=== PATIENT | male | born 1965 | race Caucasian/White ===

== ENCOUNTER 2021-12-29 13:58 | Emergency (ER) | payer OTHER ==
[~2021-12-29] VITALS: Ht 182.9 cm; Wt 118.2 kg
[2021-12-29 14:44] VITALS: TEMP 98.8
[2021-12-29 16:41] VITALS: BP 150/96; PULSE 90
== END 2021-12-29 16:41 | disposition home or self-care (01) ==
LOC: COL.ER 13:58
DX: M16.11 Unilateral primary osteoarthritis, right hip (principal); F17.210 Nicotine dependence, cigarettes, uncomplicated; Z28.310 Unvaccinated for COVID-19; X58.XXXA Exposure to other specified factors, initial encounter

== ENCOUNTER 2022-01-15 08:06 | Emergency (ER) | payer OTHER ==
[~2022-01-15] VITALS: Ht 182.9 cm; Wt 120.5 kg
[2022-01-15 08:10] VITALS: TEMP 97
[2022-01-15] MEDS ORDERED: NEURONTIN100 MG/CAP PO (08:14)
[2022-01-15] MEDS ORDERED: ROBAXIN 75750 MG/TAB PO (08:15)
[2022-01-15] MEDS ORDERED: NORCO 325 MG-51 TAB PO (09:18)
[2022-01-15] MEDS ORDERED: IBU800 M1 PO (09:18)
[2022-01-15 09:41] VITALS: BP 168/89; PULSE 94
== END 2022-01-15 09:41 | disposition home or self-care (01) ==
LOC: COL.ER 08:06
DX: M25.551 Pain in right hip (principal); F17.210 Nicotine dependence, cigarettes, uncomplicated; Z28.310 Unvaccinated for COVID-19; X50.1XXA Overexertion from prolonged static or awkward postures, initial encounter
CPT/HCPCS: J1885

== ENCOUNTER 2022-08-04 14:24 | Inpatient (IN) | payer OTHER ==
[2022-08-04] VITALS (340 sets, daily range): BP systolic 164; BP diastolic 90; PULSE 102; TEMP 98.4; O2SAT 82–99
[~2022-08-04] VITALS: Ht 182.9 cm; Wt 112.2 kg
[~2022-08-04 14:24] MED LIST: IBU800 M1 PO; NEURONTIN100 MG/CAP PO; NORCO 325 MG-51 TAB PO; ROBAXIN 75750 MG/TAB PO
[2022-08-04 15:01] LABS: HEMATOCRIT 39.9 % (42.0-52.0); HEMOGLOBIN 13.3 g/dl (13.5-18.0); MEAN CELL VOLUME 95 fl (80.0-100.0); MEAN CORPUSCULAR HEMOGLOBIN 32 pg (27-31); MEAN CORPUSCULAR HGB CONC 33 g/dl (33.0-37.0); MEAN PLATELET VOLUME 10.2 fl (7.4-10.4); PLATELET COUNT 343 K/mm3 (130-400); RED BLOOD COUNT 4.22 M/mm3 (4.20-5.60); REDCELL DISTRIBUTION WIDTH-CV 14.4 % (11.5-14.5)
[2022-08-04 15:17] LABS: BAND 22 % (0-10); LYMPHOCYTE 6 % (20.0-51.0); NEUTROPHILS 64 % (42.0-75.2); PLATELET ESTIMATE NORMAL (NORMAL)
[2022-08-04 15:19] LABS: ARTERIAL BLD GAS O2 SATURATION 95.5 % (92-100); ARTERIAL BLD GAS TCO2 CT 31.8; ARTERIAL BLOOD GAS HCO3 30.2 meq/L (22-26); ARTERIAL BLOOD GAS PCO2 51.7 mmHg (35-45); ARTERIAL BLOOD GAS PO2 73.8 mmHg (80-100); ARTERIAL BLOOD GAS pH 7.38 (7.35-7.45)
[2022-08-04 15:23] LABS: ALBUMIN 2.6 gm/dL (3.5-5.0); BILIRUBIN,TOTAL 0.5 mg/dL (0.2-1.2); CALCIUM 9.6 mg/dL (8.4-10.2); CREATININE, serum 0.95 mg/dL (0.72-1.25); POTASSIUM 3.9 mmol/L (3.5-4.5); TOTAL PROTEIN 7.5 gm/dL (6.2-8.1)
[2022-08-04 16:32] LABS: COLLECTION METHOD CLEAN CATCH
[2022-08-04 16:41] LABS: MUCOUS Present (NOT PRESENT); SQUAMOUS EPITHELIAL 0-2 /hpf (0-10); URINE APPEARANCE Clear (CLEAR/HAZY); URINE BACTERIA None Seen /hpf (NONE SEEN); URINE COLOR Yellow (YELLOW); URINE PROTEIN(semi-quant) 3+ (NEGATIVE); URINE RBC 0-2 /hpf (0-2)
[2022-08-04 16:42] LABS: URINE BLOOD 2+ (NEGATIVE); URINE GLUCOSE Negative (NEGATIVE); URINE KETONE Negative (NEGATIVE); URINE NITRATE Negative (NEGATIVE)
[2022-08-04] MEDS ORDERED: PROAIR HFA0.09 MG/AC IH (17:28)
[2022-08-04] MEDS ORDERED: RT ADVAIR 228 DISKUS IH (17:29)
[2022-08-04] MEDS ORDERED: WIXELA 250-501 EACH IH (17:29)
--- NOTE | 2022-08-04 21:00 | NUR ---
Patient assessment completed. Patient is alert and oriented x4. Patient request for a nicotine patch. HUNTER Agarwal gave this RN verbal orders for a nicotine patch. Patient is having difficulties understanding cigarettes cannot be used within the hospital. This RN educated patient on hospital policy and that supplemental oxygen is highly flammable. Patient is currently tachycardic and hypertensive. Lasix given per EMar. Patient voids using the urinal. Patient is yelling within his room for cigarettes. RN reducated patient on hospital policy. Patient verbalizes an apology and that he is frustrated at the policy. RN gave patient a snack and deescalated the situation.
[2022-08-04 22:33] LABS: TRICYCLIC ANTIDEPRESS URINE NEGATIVE
[2022-08-05] VITALS (1138 sets, daily range): BP systolic 94–124; BP diastolic 61–76; PULSE 75–100; TEMP 97.3–98.5; O2SAT 73–100
--- NOTE | 2022-08-05 03:15 | NUR ---
RN assessed patient due to O2 saturation desating to the mid 80s. Patient is alert but unable to follow commands. Patient would respond to voice and painful stimulaton. Vital signs assessed- systolic blood pressure was in the 180s. This RN rechecked pressure and systolic resulted in the 190s. HUNTER Agarwal contacted to update her on the situation. New orders for a stat head CTA. Respiratory therapy and custodian supervisor notified and accompanied RN to radiology. 0327- Patient left the ICU to radiology. 0340- Patient returned to the unit, patient appears obtunded. HUNTER Agarwal notified about patients status. New orders for an ABG. ABG results - pH-7.16, pCO2-99.5, pO2-66, and HCO3-39.6. After discussing with HUNTER Agarwal due to patient being extremely obtunded and minimal response, intubation would be the best option. Dr. Carolina from ED consulted to perfom intubation. 0407- custodian supervisor pushed Etomidate followed by succinylcholine. 0408- Intubation was successful, patient tolerated procedure and placed on fentanyl and propofol. After intubation patient began to vomit. Respiratory therapist and RN began suctioning patient. Patient's OG tube connected to LIS. Patient became hypotensive after intubation. 1L LR bolus given to improve pressures. Patient now resting comfortable in bed.
[2022-08-05 03:51] LABS: ARTERIAL BLD GAS TCO2 CT 37.7; ARTERIAL BLOOD GAS BASE EXCESS 2.7 (-2-2); ARTERIAL BLOOD GAS HCO3 34.7 meq/L (22-26)
[2022-08-05 03:53] LABS: ARTERIAL BLOOD GAS PCO2 99.5 mmHg (35-45); ARTERIAL BLOOD GAS pH 7.16 (7.35-7.45)
[2022-08-05 05:45] LABS: ARTERIAL BLD GAS O2 SATURATION 99.9 % (92-100); ARTERIAL BLD GAS TCO2 CT 39.1; ARTERIAL BLOOD GAS BASE EXCESS 8.4 (-2-2); ARTERIAL BLOOD GAS HCO3 36.9 meq/L (22-26); ARTERIAL BLOOD GAS pH 7.33 (7.35-7.45)
[2022-08-05 05:46] LABS: ARTERIAL BLOOD GAS PCO2 72.3 mmHg (35-45); ARTERIAL BLOOD GAS PO2 442.8 mmHg (80-100)
--- NOTE | 2022-08-05 08:11 | NUR ---
Patient intubated less than an hour ago. No vacation at this time.
[2022-08-05 08:32] LABS: HEMOGLOBIN 11.6 g/dl (13.5-18.0); MEAN CELL VOLUME 96 fl (80.0-100.0); MEAN CORPUSCULAR HEMOGLOBIN 32 pg (27-31); MEAN CORPUSCULAR HGB CONC 33 g/dl (33.0-37.0); MEAN PLATELET VOLUME 10.3 fl (7.4-10.4); PLATELET COUNT 295 K/mm3 (130-400); RED BLOOD COUNT 3.66 M/mm3 (4.20-5.60); REDCELL DISTRIBUTION WIDTH-CV 14.7 % (11.5-14.5)
[2022-08-05 08:35] LABS: HEMATOCRIT 35.2 % (42.0-52.0)
[2022-08-05 08:43] LABS: CALCIUM 8.9 mg/dL (8.4-10.2); CREATININE, serum 0.85 mg/dL (0.72-1.25); MAGNESIUM 2.3 mg/dL (1.6-2.6); POTASSIUM 4.8 mmol/L (3.5-4.5)
--- NOTE | 2022-08-05 08:49 | NUR ---
RECEIVED REPORT FROM NIGHTSHIFT RNCORNELIA. VENTILATOR SETTINGS, ET/ OG TUBING PLACEMENT, AND SEDATION DRIPS VERIFIED BEDSIDE.
[2022-08-05 09:03] LABS: BAND 4 % (0-10); LYMPHOCYTE 8 % (20.0-51.0); NEUTROPHILS 86 % (42.0-75.2)
[2022-08-05 09:05] LABS: HYPOCHROMIA 1+; PLATELET ESTIMATE NORMAL (NORMAL)
--- NOTE | 2022-08-05 09:46 | NUR ---
OLD NICOTINE PATCH REMOVED FROM PATIENT'S RIGHT SHOULDER. NEW NICOTINE PATCH PLACED ON PATIENT'S LEFT SHOULDER.
--- NOTE | 2022-08-05 10:18 | NUR ---
Patient currently intubated and sedated. Patients emergency contact Bekah Jackson sent to OSH on 08/02. Phone call made to the patients PCP office, and spoke with DENISE Dean. No DPOA-HC on file with PCP office.
--- NOTE | 2022-08-05 10:34 | NUR ---
HEAD TO TOE ASSESSMENT COMPLETED. IV SITES, FLANAGAN, VENTILATOR, AND IV DRIPS VERIFIED. ORDERS, MEDICATIONS, AND LAB RESULTS REVIEWED AND ACKNOWLEDGED. CALL LIGHT WITHIN REACH OF THE PATIENT. WILL CONTINUE TO MONITOR.
--- NOTE | 2022-08-05 15:32 | NUR ---
SPOKE WITH RT CHARLOTTE ABOUT PATIENT SPO2 LEVEL BEING 91-92%. RT STATES THIS SPO2 LEVEL IS ADEQUATE AT THIS TIME. ABG WILL BE REPEATED IN THE MORNING. WILL CONTINUE TO MONITOR.
--- NOTE | 2022-08-05 17:09 | NUR ---
UNABLE TO DO SEDATION VACATION AT THIS TIME D/T PATIENT'S RESTLESSNESS AND AGITATION.
--- NOTE | 2022-08-05 17:59 | NUR ---
HEAD TO TOE ASSESSMENT COMPLETED. ORDERS, LABS, AND MEDICATIONS REVIEWED AND ACKNOWLEDGED. IV SITES, IV DRIPS, FLANAGAN, ET/OG TUBE PLACEMENT, AND VENTILATOR SETTINGS ALL VERIFIED. PATIENT APPEARS TO BE RESTING COMFORTABLY AND IS NOT FIGHTING THE VENTILATOR AT THIS TIME. CALL LIGHT WITHIN REACH. WILL CONTINUE TO MONITOR.
--- NOTE | 2022-08-05 20:30 | NUR ---
Patient assessment completed. Patient is awake at times throughout assessment. Patient follows simple commands - squeezing RN's hand, wiggling toes. Patient is attempting to talk with the ETT in place. This RN gave patient a pen and paper and answered patients questions. Patient is tolerating ventilator after an increase in sedation. VSS. Patient repositioned in bed and is now resting comfortably.
[2022-08-05 20:56] LABS: ARTERIAL BLD GAS O2 SATURATION 92.8 % (92-100); ARTERIAL BLD GAS TCO2 CT 33.2; ARTERIAL BLOOD GAS BASE EXCESS 6.6 (-2-2); ARTERIAL BLOOD GAS HCO3 31.8 meq/L (22-26); ARTERIAL BLOOD GAS PCO2 47.5 mmHg (35-45); ARTERIAL BLOOD GAS PO2 61.7 mmHg (80-100); ARTERIAL BLOOD GAS pH 7.44 (7.35-7.45)
[2022-08-06] VITALS (1338 sets, daily range): BP systolic 94–126; BP diastolic 62–78; PULSE 56–81; TEMP 97.7–98.6; O2SAT 83–100
[2022-08-06 04:42] LABS: ARTERIAL BLD GAS O2 SATURATION 93.4 % (92-100); ARTERIAL BLOOD GAS BASE EXCESS 9.4 (-2-2); ARTERIAL BLOOD GAS HCO3 35.3 meq/L (22-26); ARTERIAL BLOOD GAS PCO2 54.3 mmHg (35-45); ARTERIAL BLOOD GAS PO2 64.8 mmHg (80-100); ARTERIAL BLOOD GAS pH 7.43 (7.35-7.45)
[2022-08-06 04:59] LABS: HEMOGLOBIN 10.9 g/dl (13.5-18.0); MEAN CELL VOLUME 100 fl (80.0-100.0); MEAN CORPUSCULAR HEMOGLOBIN 32 pg (27-31); MEAN CORPUSCULAR HGB CONC 32 g/dl (33.0-37.0); PLATELET COUNT 329 K/mm3 (130-400); REDCELL DISTRIBUTION WIDTH-CV 15.1 % (11.5-14.5)
[2022-08-06 05:03] LABS: HEMATOCRIT 33.9 % (42.0-52.0)
[2022-08-06 05:15] LABS: CALCIUM 8.7 mg/dL (8.4-10.2); CREATININE, serum 0.97 mg/dL (0.72-1.25); MAGNESIUM 2.7 mg/dL (1.6-2.6); POTASSIUM 4.2 mmol/L (3.5-4.5)
--- NOTE | 2022-08-06 05:38 | NUR ---
Sedation vacation not attempted at this time due to patient responding and following commands at this level of sedation. When sedation is titrated lower patient begins to fight the ventilator.
[2022-08-06 07:03] LABS: BAND 17 % (0-10); LYMPHOCYTE 11 % (20.0-51.0); METAMYELOCYTE 1 % (0-0); NEUTROPHILS 69 % (42.0-75.2); NUCLEATED RED BLOOD CELL 1 (0-6); PLATELET ESTIMATE NORMAL (NORMAL)
--- NOTE | 2022-08-06 07:45 | NUR ---
Received report from PRACHI Jacinto; patient still on ventilator with prop and fent running for sedation; patient also has OG tube and is on tube feeds. Patient has Murcia catheter placed and a peripheral INT in addition to the right upper arm PICC. Patient currently sedated and resting comfortably. Vital signs are within normal limits this morning.
--- NOTE | 2022-08-06 10:11 | NUR ---
Initial visit; Patient vented, was receptive to Soil Scientist offering prayer and God's blessings. Yasir appeared to be pleased Soil Scientist was with him. Soil Scientist will follow up.
--- NOTE | 2022-08-06 14:25 | NUR ---
Patient still intubated and sedated. Phone call made to Amena Jackson as this was listed as the patients "son" in his EMR. Upon talking with Amena, this is not a biological or legal child in any form of the patients. Her mother is Bekah, whom is the person that the patient lives with. Per Amena, prior to admission, the patient was fully independent with his ADL's and IAdl's. He has no home oxygen needs. PCP is Dr. Ridley and he obtains prescriptions through [email or web address]. Amena states that the patient and her mother are not legally , the patient has no children but she does believe the patients mother and brother are alive. She is unable to provide any contact information or names to them aside from possible states they might be living in.
--- NOTE | 2022-08-06 17:00 | NUR ---
Sedation vacation not done today as patient is able to respond appropriately and follow commands at the level of sedation he is on.
--- NOTE | 2022-08-06 20:30 | NUR ---
Patient assessment completed. Patient is awake on the ventilator and is able to follow commands. Patients vital signs are stable. Patient suctioned and RN was able to pull up lots of thin white secretions. This RN gave patient a bed bath and now patient is resting comfortably while watching TV.
[2022-08-07] VITALS (1128 sets, daily range): BP systolic 104–127; BP diastolic 65–75; PULSE 64–78; TEMP 98.5–99; O2SAT 77–100
[2022-08-07 04:08] LABS: ARTERIAL BLD GAS O2 SATURATION 95.4 % (92-100); ARTERIAL BLD GAS TCO2 CT 35.8; ARTERIAL BLOOD GAS BASE EXCESS 8.6 (-2-2); ARTERIAL BLOOD GAS HCO3 34.2 meq/L (22-26); ARTERIAL BLOOD GAS PCO2 51.7 mmHg (35-45); ARTERIAL BLOOD GAS PO2 78.7 mmHg (80-100); ARTERIAL BLOOD GAS pH 7.44 (7.35-7.45)
--- NOTE | 2022-08-07 05:05 | NUR ---
Patient's sedation titrated down as patient was tolerating sedation levels. Patient follows commands and answers simple questions.
[2022-08-07 05:07] LABS: HEMOGLOBIN 11.2 g/dl (13.5-18.0); MEAN CELL VOLUME 96 fl (80.0-100.0); MEAN CORPUSCULAR HEMOGLOBIN 33 pg (27-31); MEAN CORPUSCULAR HGB CONC 34 g/dl (33.0-37.0); MEAN PLATELET VOLUME 10.8 fl (7.4-10.4); PLATELET COUNT 336 K/mm3 (130-400); RED BLOOD COUNT 3.45 M/mm3 (4.20-5.60); REDCELL DISTRIBUTION WIDTH-CV 15.2 % (11.5-14.5)
[2022-08-07 05:47] LABS: CALCIUM 8.4 mg/dL (8.4-10.2); CREATININE, serum 0.87 mg/dL (0.72-1.25); MAGNESIUM 3.1 mg/dL (1.6-2.6); PHOSPHOROUS 3.4 mg/dL (2.3-4.7); POTASSIUM 4.6 mmol/L (3.5-4.5)
[2022-08-07 06:20] LABS: ANISOCYTOSIS 1+; BAND 2 % (0-10); LYMPHOCYTE 9 % (20.0-51.0); MYELOCYTE 4 % (0-0); NEUTROPHILS 82 % (42.0-75.2); PLATELET ESTIMATE NORMAL (NORMAL)
[2022-08-07 06:21] LABS: TEAR DROP CELLS 2+
--- NOTE | 2022-08-07 10:19 | NUR ---
BEDSIDE REPORT RECIEVED FROM PRACHI LOCKE. PT ON VENILATOR: 7.5 ETT MEASURING 23CM AT GUM, TV480, PEEP 8, FIO2 50%, RATE 20. OG IN PLACE MEASURING 63CM AT LIP, TUBE FEEDS INFUSING ORDERED. SEDATION INFUSING TO R UPPER ARM PICC, SEE TITRATION FLOWSHEET FOR RATES. DRESSING TO PICC CDI. FLANAGAN CATHTER IN PLACE TO DEPENDENT DRAINAGE. PT IS EASILY AROUSED AND IS ABLE TO FOLLOW COMMANDS, PT DENIES PAIN. Q2HR TURN SCHEDULE IMPLEMENTED TO PREVENT SKIN BREAKDOWN.
--- NOTE | 2022-08-07 17:29 | NUR ---
SEDATION VACATION NOT DONE AT THIS TIME. PT WAKES EASILY TO VOICE AND BECOMES AGITATED W/ CARES.
[2022-08-08] VITALS (1069 sets, daily range): BP systolic 107–129; BP diastolic 0–90; PULSE 59–75; TEMP 98–98.7; O2SAT 73–100
[2022-08-08 02:49] LABS: ARTERIAL BLD GAS O2 SATURATION 94.6 % (92-100); ARTERIAL BLD GAS TCO2 CT 35.1; ARTERIAL BLOOD GAS BASE EXCESS 7.3 (-2-2); ARTERIAL BLOOD GAS HCO3 33.4 meq/L (22-26); ARTERIAL BLOOD GAS PCO2 54.8 mmHg (35-45); ARTERIAL BLOOD GAS PO2 75.4 mmHg (80-100)
--- NOTE | 2022-08-08 03:35 | NUR ---
WEANING DOWN SEDATION LEVELS WITH GOAL OF EXTUABTION THIS AM PER DR. DWYER. PT CONTINUES TO HAVE LARGE AMOUNTS OF SECRETIONS WITH IN LINE SUCTIONING. MAINTAINING PULSE OXIMETRY ABOVE 93% ON CURRENT VENT SETTINGS, UP TO 97% AFTER SUCTIONING. AT THIS TIME, PT IS STARTING TO BE MORE AWAKE/ALERT, HOWEVER ALSO GETS FRUSTRATED AT LIMITED ABILITY TO COMMUNICATE. DOES CONTINUE TO TOLERATE VENILATOR AT THIS TIME. WILL CONTINUE TO MONITOR.
[2022-08-08 05:15] LABS: HEMOGLOBIN 10.6 g/dl (13.5-18.0); MEAN CELL VOLUME 99 fl (80.0-100.0); MEAN CORPUSCULAR HEMOGLOBIN 31 pg (27-31); MEAN CORPUSCULAR HGB CONC 32 g/dl (33.0-37.0); PLATELET COUNT 322 K/mm3 (130-400); REDCELL DISTRIBUTION WIDTH-CV 15.7 % (11.5-14.5)
[2022-08-08 05:27] LABS: HEMATOCRIT 33.5 % (42.0-52.0)
[2022-08-08 05:36] LABS: CALCIUM 8.2 mg/dL (8.4-10.2); CREATININE, serum 0.75 mg/dL (0.72-1.25); MAGNESIUM 3.2 mg/dL (1.6-2.6); POTASSIUM 4.9 mmol/L (3.5-4.5)
[2022-08-08 06:12] LABS: BAND 3 % (0-10); LYMPHOCYTE 14 % (20.0-51.0); METAMYELOCYTE 2 % (0-0); NEUTROPHILS 77 % (42.0-75.2); PLATELET ESTIMATE NORMAL (NORMAL)
--- NOTE | 2022-08-08 09:15 | NUR ---
BEDSIDE REPORT RECEIVED FROM PRACHI AVILES. PT ON VENTILATOR, 7.5 ETT MEASURING 23 AT GUM, TV 450, PEEP 7, FIO2 45%, RATE 20. OG TUBE IN PLACE MEASURING 63CM AT LIP, TUBE FEEDS ON HOLD AT THIS TIME PENDING BREATHING TRIAL AND POSSIBLE EXTUBATION LATER THIS MORNING. SEDATION HAS BEEN TITRATED DOWN BY REMOTE INPATIENT CODER, PROPOFOL IS AT 20 MCG/KG/MIN, FENTANYL AT 25 MCG/HR. PICC LINE TO R UPPER ARM WNL. FLANAGAN CATHETER IN PLACE TO DEPENDENT DRAINAGE. BED ALARM ON FOR PT SAFETY. PT IS ON TURN Q2HR SCHEDULE TO PREVENT SKIN BREAKDOWN.
[2022-08-08 10:34] LABS: CHOLESTEROL RISK RATIO 8.2
--- NOTE | 2022-08-08 11:09 | NUR ---
Patient failed extubation trial this morning. Will attempt at a later time.
--- NOTE | 2022-08-08 13:22 | NUR ---
Follow-up; Patient sleeping, offered prayer for Yasir, his family and friends. Hospice Care Consultant prays for healing and for "Thy Will Be Done."
--- NOTE | 2022-08-08 17:14 | NUR ---
TUBE FEEDS HELD AND SEDATION DECREASED THIS MORNING IN ATTEMPT TO EXTUBATE PT. PT DID NOT TOLERATE BREATHING TRIAL WELL, PT BECAME VERY AGITATED. SEDATION RESTARTED. SEE TITRATION FLOWSHEET FOR RATES. SEDATION VACATION NOT DONE THIS AFTERNOON PT IS RESPONDS TO VOICE AND FOLLOWS COMMANDS ON MINIMAL AMOUNT OF SEDATION. TUBE FEEDINGS RESUMED ORDERED, TYPE CHANGED TO JEVITY AND WATER FLUSHES INCREASED.
--- NOTE | 2022-08-08 19:15 | NUR ---
Received report from Amelie Multani RN. Patient resting quietly in bed watching TV. He remains on ventilator, tolerating well. Patient is alert, following verbal commands, and attempting to communicate with staff. He uses his call light appropriately. Vitals within normal limits. Continues to receive fentanyl and propofol drips, see IV drip titrations. Bed in lowest position, all alarms on.
[2022-08-09] VITALS (1064 sets, daily range): BP systolic 111–137; BP diastolic 60–80; PULSE 58–81; TEMP 97.1–98.9; O2SAT 81–100
--- NOTE | 2022-08-09 03:00 | NUR ---
Beginning to wean sedation to attempt extubation later this morning.
[2022-08-09 05:40] LABS: HEMOGLOBIN 10.9 g/dl (13.5-18.0); MEAN CELL VOLUME 100 fl (80.0-100.0); MEAN CORPUSCULAR HEMOGLOBIN 32 pg (27-31); MEAN CORPUSCULAR HGB CONC 32 g/dl (33.0-37.0); PLATELET COUNT 361 K/mm3 (130-400); RED BLOOD COUNT 3.45 M/mm3 (4.20-5.60); REDCELL DISTRIBUTION WIDTH-CV 15.2 % (11.5-14.5)
[2022-08-09 05:43] LABS: HEMATOCRIT 34.6 % (42.0-52.0)
[2022-08-09 05:50] LABS: CALCIUM 8.7 mg/dL (8.4-10.2); CREATININE, serum 0.64 mg/dL (0.72-1.25); POTASSIUM 4.9 mmol/L (3.5-4.5)
[2022-08-09 06:53] LABS: BAND 11 % (0-10); LYMPHOCYTE 14 % (20.0-51.0); NEUTROPHILS 70 % (42.0-75.2); PLATELET ESTIMATE NORMAL (NORMAL)
[2022-08-09 06:54] LABS: ANISOCYTOSIS 1+; HYPOCHROMIA 2+
--- NOTE | 2022-08-09 07:00 | NUR ---
Received report from PRACHI Perea; patient currently still on ventilator but sedation is on standby as we will try to extubate later this morning. Patient still has OG tube and ET tube in place as well as Murcia catheter. Patient's vital signs are within normal limits this morning.
--- NOTE | 2022-08-09 07:00 | NUR ---
Patient's sedation on standby this morning with anticipation of extubation.
[2022-08-09 09:05] LABS: ARTERIAL BLD GAS O2 SATURATION 95.1 % (92-100); ARTERIAL BLD GAS TCO2 CT 36.9; ARTERIAL BLOOD GAS HCO3 34.9 meq/L (22-26); ARTERIAL BLOOD GAS PO2 79.6 mmHg (80-100); ARTERIAL BLOOD GAS pH 7.35 (7.35-7.45)
[2022-08-09 09:06] LABS: ARTERIAL BLOOD GAS PCO2 65.3 mmHg (35-45)
--- NOTE | 2022-08-09 09:30 | NUR ---
Patient unable to be extubated; sedation medications resumed.
--- NOTE | 2022-08-09 09:54 | NUR ---
Patient failed weaning trial this morning. [facility] referral faxed to [facility].
--- NOTE | 2022-08-09 18:33 | NUR ---
Sedation vacation not performed today as patient is responsive and follows commands appropriately.
--- NOTE | 2022-08-09 18:48 | NUR ---
Propofol changed to Versed and Precedex drips as patient's triglycerides were high.
--- NOTE | 2022-08-09 22:31 | NUR ---
RECEIVED REPORT FROM DAY SHIFT NURSE. PT IS LYING IN BED WITH CALL LIGHT WITHIN REACH. ALL DRIPS ARE RUNNING AND VERIFIED WITH DAY SHIFT NURSE. VITALS ARE STABLE AT THIS TIME.
[2022-08-10] VITALS (1224 sets, daily range): BP systolic 101–140; BP diastolic 60–81; PULSE 60–95; TEMP 97–98.5; O2SAT 78–100
[2022-08-10 04:35] LABS: HEMOGLOBIN 10.7 g/dl (13.5-18.0); MEAN CELL VOLUME 99 fl (80.0-100.0); MEAN CORPUSCULAR HEMOGLOBIN 31 pg (27-31); MEAN CORPUSCULAR HGB CONC 31 g/dl (33.0-37.0); MEAN PLATELET VOLUME 10.1 fl (7.4-10.4); PLATELET COUNT 342 K/mm3 (130-400); RED BLOOD COUNT 3.46 M/mm3 (4.20-5.60); REDCELL DISTRIBUTION WIDTH-CV 14.9 % (11.5-14.5)
[2022-08-10 04:52] LABS: HEMATOCRIT 34.4 % (42.0-52.0)
[2022-08-10 05:06] LABS: CALCIUM 8.6 mg/dL (8.4-10.2); CREATININE, serum 0.63 mg/dL (0.72-1.25); MAGNESIUM 2.3 mg/dL (1.6-2.6); POTASSIUM 3.9 mmol/L (3.5-4.5)
[2022-08-10 05:12] LABS: BAND 3 % (0-10); EOSINOPHIL 4 % (0-4); HYPOCHROMIA 2+; LYMPHOCYTE 25 % (20.0-51.0); METAMYELOCYTE 2 % (0-0); NEUTROPHILS 66 % (42.0-75.2); PLATELET ESTIMATE NORMAL (NORMAL)
--- NOTE | 2022-08-10 06:03 | NUR ---
PT FOLLOWS COMMANDS AND OPENS EYES UPON SPEECH BEFORE SEDATION VACATION. AFTER SEDATION VACATION PT OPENS EYES SPONTANOUSLY AND STILL FOLLOWS COMMANDS AND IS ABLE TO ANSWER YES AND NO QUESTIONS. PT IS ALERT AND CALM. SEDATION IS STILL AT THE SEDATION VACATION AT THIS TIME.
--- NOTE | 2022-08-10 06:51 | NUR ---
TITRATING SEDATION DOWN FOR CPAP AND PRESSURE TRAIL IN THE MORNING.
--- NOTE | 2022-08-10 06:52 | NUR ---
TITRATING DOWN FOR THE CPAP AND PRESSURE TRIAL FOR MORNING PER DR. DWYER'S ORDERS.
--- NOTE | 2022-08-10 06:52 | NUR ---
TITRATING DOWN PER ORDERS FOR CPAP AND PRESSURE TRIAL IN THE MORNING.
--- NOTE | 2022-08-10 07:10 | NUR ---
DC FOR CPAP AND PRESSURE TRIAL PER ORDERS.
--- NOTE | 2022-08-10 07:10 | NUR ---
DC FOR CPAP AND PRESSURE TRIAL PER ORDERS.
--- NOTE | 2022-08-10 07:11 | NUR ---
PT HAD AN UNEVENTFUL NIGHT. PT OPENS EYES BY SPEECH WITH THE FIRST TWO ASSESSMENTS AND SPONTANOUSLY WITH THE LAST ASSESSMENT. LUNG SOUNDS WERE COARSE AND HAD EXP. WHEEZES AT TIME IN THE BASES. PT WILL FOLLOW COMMANDS AND ANSWER YES AND NO QUESTIONS. PULSES ARE STRONG FOR RADIAL AND FEET PULSES. VITALS HAVE BEEN STABLE THROUGHOUT THE NIGHT. GAVE REPORT TO DAY SHIFT NURSEBHAVNA.
--- NOTE | 2022-08-10 07:43 | NUR ---
PT IS AWAKE IN ROOM ON VENTILATOR. PT APPEARS COMFORTABLE AND FOLLOWS COMMANDS. RT STARTS CPAP TRIAL AT 0730. PT HR HAS INCREASED BUT IS STILL SR ON THE MONITOR. ABG SCHEDULED TO BE COMPLETED AT 0830. VSS.
[2022-08-10 08:58] LABS: ARTERIAL BLD GAS O2 SATURATION 93.4 % (92-100); ARTERIAL BLD GAS TCO2 CT 31.6; ARTERIAL BLOOD GAS BASE EXCESS 3.5 (-2-2); ARTERIAL BLOOD GAS HCO3 29.9 meq/L (22-26); ARTERIAL BLOOD GAS PCO2 53.9 mmHg (35-45); ARTERIAL BLOOD GAS pH 7.36 (7.35-7.45)
--- NOTE | 2022-08-10 09:50 | NUR ---
PT EXTUBATED AT [address] DWYER'S ORDERS. PT HAD NO STRIDOR. BLBS DIMINISHED AND EQUAL. SUCTIONED VIA ETT AND ORALLY PRIOR TO EXTUBATION. PT WAS PLACED ON 5L OXIMASK FOR DECREASING SPO2 AND INCREASED WOB. PT CONTINUED TO DESAT TO 70S WITH [address] DWYER NOTIFIED AND PT PLACED ON BIPAP /10 50% ORDERED. PT TOLERATING WELL. DECREASED WOB WITH BIPAP AND SPO2 INCREASED TO 95%. VSS AT THIS TIME. HR 85, RR 23, SPO2 95%.
--- NOTE | 2022-08-10 09:55 | NUR ---
Pt extubated at 0938. Pt is alert and oreinted. Answeres all orientation questions appropriately. On 10L his SPO2 is 79%. PT turned up to 15 L OM by RT. Dr. Johnson notified and orders received for bipap. On 15L patient SPO2 came up to 95%. Current Bipap settings are 14/10 FIO2 50%. Pt is tolerating well. SPO2 is 98%. Pt is watching tv. Call light in hand.
--- NOTE | 2022-08-10 11:51 | NUR ---
Pc Installation Engineer rounds: Read Psalm 23 and 27 to Patient who was had a respirator on at the time. Pc Installation Engineer prayed for Patient. When asked, Patient accepted the offer for a second visit later in the morning.
--- NOTE | 2022-08-10 11:52 | NUR ---
Follow-up Hearing Screener visit: Read from Ashley to Patient. Patient had a c-pap. He asked me to contact the person he said is his half-brother All. He found the phone number in his phone. I called All. All said he would visit. I notified HUMANITIES PROFESSOR that Patient would be getting a visitor.
[2022-08-10 12:10] LABS: ARTERIAL BLD GAS O2 SATURATION 95.6 % (92-100); ARTERIAL BLD GAS TCO2 CT 34.9; ARTERIAL BLOOD GAS BASE EXCESS 7.4 (-2-2); ARTERIAL BLOOD GAS HCO3 33.3 meq/L (22-26); ARTERIAL BLOOD GAS PCO2 51.7 mmHg (35-45); ARTERIAL BLOOD GAS PO2 83.3 mmHg (80-100); ARTERIAL BLOOD GAS pH 7.43 (7.35-7.45)
--- NOTE | 2022-08-10 16:39 | NUR ---
PT IS LAYING IN BED ON 4l OM SPO2 CURRENTLY 95%. PT APPEARS TO BE COMFORTABLE. BREATHING EASILY. PT IS WATCHING TV. TOLERATES SIPS OF WATER WITHOUT INCIDENT.
--- NOTE | 2022-08-10 19:02 | NUR ---
PT is very upset that dining services called and told him he could have chicken and rice. this RN explained that he still does not have solid food diet and that he is unable to have this meal at this time. The patient continues to express how upset he is that they called and now he has his hopes up.
--- NOTE | 2022-08-10 20:00 | NUR ---
SHIFT REPORT RECEIVED. PT A&O x4. PT IS ON 4L OXYMASK WITH CLEAR LUNG SOUNDS THAT ARE DIMINISHED AT THE BASES. PT HAD 2 BM'S OF MODERATE SIZE LOSE DARK BROWN STOOL USING BED DAVIES. 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 PT ABLE TO TOLERATE WATER. THIS NURSE ASSISTED PT WITH TRIALS OF APPLESAUCE AND PUDDING WHICH PT ENJOYED AND TOLERATED WELL. PT EDUCATED ON IMPORTANCE OF USING CALL LIGHT AND NOT GETTING OUT OF BED, PT VERBALIZED UNDERSTANDING. BED ALARMS ON AND CALL LIGHT WITHIN REACH.
[2022-08-11] VITALS (761 sets, daily range): BP systolic 116–145; BP diastolic 68–82; PULSE 86–104; TEMP 98.2–98.9; O2SAT 81–100
--- NOTE | 2022-08-11 00:10 | NUR ---
PT TO WEAR BIPAP DURING THE NIGHT AND PT VERBALIZES UNDERSTANDING BUT EXPRESSED HIS DISLIKE FOR THE BIPAP, STATING "I KNOW I HAVE TO WEAR THIS THING OVER NIGHT BUT I'M CRANKY BECAUSE I KNOW I'M NOT GOING TO BE ABLE TO SLEEP WITH THIS THING ON." PT EXPRESSES HE IS HAVING ANXIETY WITH THE FEELING OF THE BIPAP "PUSHING AND PULLING" AIR INTO HIM. HOSPITALIST NOTIFIED AND ORDER FOR ATIVAN WAS PLACED. ATIVAN HELPED RELIEVE SOME ANXIETY FOR PT.
[2022-08-11 00:50] LABS: ARTERIAL BLD GAS O2 SATURATION 92.2 % (92-100); ARTERIAL BLD GAS TCO2 CT 32.3; ARTERIAL BLOOD GAS BASE EXCESS 5.6 (-2-2); ARTERIAL BLOOD GAS HCO3 30.8 meq/L (22-26); ARTERIAL BLOOD GAS PCO2 47.4 mmHg (35-45); ARTERIAL BLOOD GAS PO2 62.3 mmHg (80-100); ARTERIAL BLOOD GAS pH 7.43 (7.35-7.45)
[2022-08-11 04:47] LABS: ARTERIAL BLD GAS O2 SATURATION 96.4 % (92-100); ARTERIAL BLD GAS TCO2 CT 33.5; ARTERIAL BLOOD GAS BASE EXCESS 5.4 (-2-2); ARTERIAL BLOOD GAS HCO3 31.8 meq/L (22-26); ARTERIAL BLOOD GAS PCO2 54.5 mmHg (35-45); ARTERIAL BLOOD GAS pH 7.38 (7.35-7.45)
[2022-08-11 05:12] LABS: HEMOGLOBIN 11.8 g/dl (13.5-18.0); MEAN CELL VOLUME 97 fl (80.0-100.0); MEAN CORPUSCULAR HEMOGLOBIN 31 pg (27-31); MEAN CORPUSCULAR HGB CONC 32 g/dl (33.0-37.0); MEAN PLATELET VOLUME 9.8 fl (7.4-10.4); PLATELET COUNT 400 K/mm3 (130-400); RED BLOOD COUNT 3.77 M/mm3 (4.20-5.60); REDCELL DISTRIBUTION WIDTH-CV 14.6 % (11.5-14.5)
[2022-08-11 05:19] LABS: HEMATOCRIT 36.7 % (42.0-52.0)
[2022-08-11 05:28] LABS: CALCIUM 8.5 mg/dL (8.4-10.2); CREATININE, serum 0.64 mg/dL (0.72-1.25); POTASSIUM 3.9 mmol/L (3.5-4.5)
[2022-08-11 05:35] LABS: BAND 5 % (0-10); EOSINOPHIL 3 % (0-4); HYPOCHROMIA 1+; LYMPHOCYTE 9 % (20.0-51.0); METAMYELOCYTE 2 % (0-0); NEUTROPHILS 77 % (42.0-75.2); PLATELET ESTIMATE INCREASED (NORMAL)
[2022-08-11 05:50] LABS: MAGNESIUM 2.3 mg/dL (1.6-2.6)
--- NOTE | 2022-08-11 09:08 | NUR ---
BEDSIDE REPORT RECEIVED FROM PRACHI DUGAN. PT RESTING IN BED, VSS, O2 SAT 94% ON 5L PER OXYMASK. PICC TO R UPPER ARM WNL, NO DRIPS INFUSING AT THIS TIME. PT FLANAGAN CATHETER IN PLACE TO DEPENDENT DRAINAGE. PT DENIES NEEDS AT THIS TIME, CALL LIGHT IN REACH.
--- NOTE | 2022-08-11 11:56 | NUR ---
Vocational Rehabilitation Administrator rounds: Vocational Rehabilitation Administrator visit attempted twice. First time Patient was on bedside commode. Second time Patient declined visit stating he has an upset stomach.
--- NOTE | 2022-08-11 13:50 | NUR ---
Patient to room 307 from the ICU by wheelchair. A&Ox3. VSS. IV CDI. Patient positioned for comfort. Nurse oriented the patient to location, room and call light. No further needs expressed. Call light within reach. Bed alarm on
--- NOTE | 2022-08-11 14:35 | NUR ---
FLANAGAN CATHETER DISCONTINUED ORDERED. PT USES URINAL INDEPENDENTLY. PT UP TO BEDSIDE COMMODE W/ THERAPY, GAIT UNSTEADY. ADVISED PT TO NOT ATTEMPT TO GET OUT OF BED WITHOUT ASSISTANCE. PT ABLE TO EAT AND DRINK WITHOUT COUGHING OR CHOKING, DIET ADVANCED. REPORT CALLED TO PRACHI BARRIOS AT 1330. PT TAKEN TO ROOM 307 VIA WC AT 1343. PT BELONGINGS GATHERED AND TAKEN W/ PT WELL.
--- NOTE | 2022-08-11 19:31 | NUR ---
Patient sitting up in bed watching TV. A&Ox3. VSS 5L NC O2, no reported SOB. Denies pain and discomfort. Set off the bed alarm by sitting on the edge of bed. Patient states he just wants to sit up and needs to burp. Nurse instructed the patient not to get up on his own and to call for assistance when needed. Call light within reach. Bed alarm on
--- NOTE | 2022-08-11 23:16 | NUR ---
care taken over by this nurse. pt awake and requesting a late snack. no other needs at this time.
[2022-08-12 03:13] VITALS: BP 114/67; PULSE 88; TEMP 97.8
[2022-08-12 06:17] LABS: HEMOGLOBIN 11.8 g/dl (13.5-18.0); MEAN CELL VOLUME 97 fl (80.0-100.0); MEAN CORPUSCULAR HEMOGLOBIN 31 pg (27-31); MEAN CORPUSCULAR HGB CONC 32 g/dl (33.0-37.0); MEAN PLATELET VOLUME 9.7 fl (7.4-10.4); PLATELET COUNT 369 K/mm3 (130-400); RED BLOOD COUNT 3.78 M/mm3 (4.20-5.60); REDCELL DISTRIBUTION WIDTH-CV 14.1 % (11.5-14.5)
[2022-08-12 06:25] LABS: HEMATOCRIT 36.8 % (42.0-52.0)
[2022-08-12 06:33] LABS: CALCIUM 8.8 mg/dL (8.4-10.2); CREATININE, serum 0.66 mg/dL (0.72-1.25); MAGNESIUM 2.4 mg/dL (1.6-2.6)
[2022-08-12 07:53] VITALS: BP 129/68; PULSE 85; TEMP 98.5
--- NOTE | 2022-08-12 08:08 | NUR ---
Pt awake and laying in bed. Morning medications administered per eMAR. Shift assessment completed. VSS. Pt remains on 4L per NC with O2 sat 91% WNL. PICC in R upper arm remains in place; no edema or redness noted. No further request at this time. Call light within reach.
[2022-08-12 08:16] LABS: BAND 1 % (0-10); EOSINOPHIL 2 % (0-4); LYMPHOCYTE 15 % (20.0-51.0); METAMYELOCYTE 3 % (0-0); NEUTROPHILS 76 % (42.0-75.2); PLATELET ESTIMATE NORMAL (NORMAL)
[2022-08-12 11:19] VITALS: BP 124/65; PULSE 87; TEMP 98.9
[2022-08-12 16:16] VITALS: BP 141/70; PULSE 105; TEMP 98
[2022-08-12 19:36] VITALS: BP 129/78; PULSE 89; TEMP 98
[2022-08-13 00:23] VITALS: BP 129/68; PULSE 76; TEMP 97.8
[2022-08-13 04:44] VITALS: BP 124/60; PULSE 79; TEMP 97.5
[2022-08-13 07:12] LABS: HEMOGLOBIN 11.6 g/dl (13.5-18.0); MEAN CELL VOLUME 97 fl (80.0-100.0); MEAN CORPUSCULAR HEMOGLOBIN 31 pg (27-31); MEAN CORPUSCULAR HGB CONC 32 g/dl (33.0-37.0); MEAN PLATELET VOLUME 9.7 fl (7.4-10.4); PLATELET COUNT 362 K/mm3 (130-400); RED BLOOD COUNT 3.74 M/mm3 (4.20-5.60); REDCELL DISTRIBUTION WIDTH-CV 13.9 % (11.5-14.5)
[2022-08-13 07:20] LABS: HEMATOCRIT 36.1 % (42.0-52.0)
[2022-08-13 07:34] LABS: CALCIUM 8.5 mg/dL (8.4-10.2); CREATININE, serum 0.67 mg/dL (0.72-1.25); MAGNESIUM 2.3 mg/dL (1.6-2.6); POTASSIUM 3.5 mmol/L (3.5-4.5)
[2022-08-13 07:50] VITALS: BP 121/59; PULSE 82; TEMP 97.7
--- NOTE | 2022-08-13 07:53 | NUR ---
Pt awake and eating breakfast. Morning medications adminsitered per eMAR. Shift assessment completed. VSS. Telemetry on with NSR. Pt on 3L per NC. PICC in R upper arm remains in place, no edema or redness. No further request at this time. Call light within reach. Fall precautions in place.
[2022-08-13 08:15] LABS: BAND 1 % (0-10); LYMPHOCYTE 20 % (20.0-51.0); NEUTROPHILS 76 % (42.0-75.2); PLATELET ESTIMATE NORMAL (NORMAL)
[2022-08-13 08:16] LABS: HYPOCHROMIA 1+
--- NOTE | 2022-08-13 10:37 | NUR ---
Late Entry for 08-12-22 Industrial Hire Sales Assistant collaborated with Dr. Darby to discuss discharge planning for patient. PAtient is no longer a cantidate for [facility], Dr. Morriss referral to [facility].
--- NOTE | 2022-08-13 10:39 | NUR ---
Event Promotions Coordinator coordinated with Judi with [facility] re:referral. Judi reports that [facility] will follow Patient to further assess patient's suitability for [facility]. SW will continue to follow.
--- NOTE | 2022-08-13 11:19 | NUR ---
Judi, [facility] Director, notified SW that they are following the patient, but he is borderline on qualifying. He may be too functional. SW met with the patient to introduce oneself and to update on the above. The patient verbalized understanding. SW discussed home health services, if too functional. The patient is open to home health and whatever that would be paid by insurance. He provides that he lives in [place] and his friend/girlfriend, Bekah Jackson, lives with him off an on. He has a cane and crutches at home. He states that he is not and does not have any children of his own. He shares that he does have a step-son, All, that lives nearby and can transport him home when ready. He states that his mother, Michelle, is still alive and she lives with his brother in [place], [place]. The patient had no other questions or concerns for SW at this time. *Discharge plan: [facility] or home with home health*
[2022-08-13 11:35] VITALS: BP 116/56; PULSE 85; TEMP 97.9
[2022-08-13 16:00] VITALS: BP 144/74; PULSE 103; TEMP 98.5
[2022-08-13 19:01] VITALS: BP 136/67; PULSE 100; TEMP 98.4
[2022-08-14 00:10] VITALS: BP 136/81; PULSE 83; TEMP 98.3
[2022-08-14 04:43] VITALS: BP 110/60; PULSE 79; TEMP 97.8
[2022-08-14 07:46] VITALS: BP 118/63; PULSE 84; TEMP 98
--- NOTE | 2022-08-14 08:47 | NUR ---
Assessment complete. A/O x4. Denies SOA but reports non productive cough. O2 2L/NC. Denies pain.
[2022-08-14] MEDS ORDERED: RT ADVAIR 228 DISKUS IH (11:13)
[2022-08-14] MEDS ORDERED: RT SPIRIVA18 MCG IH (11:14)
[2022-08-14] MEDS ORDERED: PREDNISONE20 MG PO (11:17)
[2022-08-14 12:00] VITALS: BP 126/65; PULSE 88; TEMP 98.2
--- NOTE | 2022-08-14 15:06 | NUR ---
Judi, with [facility], reports that they had submitted for auth to insurance, but have not heard back yet. The hospitalist notified the social work team that the patient has improved to be able to go home and plan is to discharge him today. An exercise oximetry was ordered. RT notified SW that the patient did not qualify for oxygen. [facility] is the only home health agency on [facility] list of home health agencies that serve [place] that take the patient's insurance: [employer]. SW contacted and faxed a referral to Amira at [facility]. Amira confirms that they take the patient's insurance, but have to look over the referral first. SW faxed the referral to [facility]. SW then contacted [facility] to follow up on the referral. [facility] reports that they have a call out to the patient's insurance to find out if the patient would have a co-pay or any deductibles. They cannot give us an answer on if they can accept, until they hear back from insurance. SW notified the hospitalist team. The hospitalist team suggests outpatient PT/OT, if home health is not an option. DENISE then met with the patient to update him on the above. He is open to outpatient PT/OT and would prefer to get set up at [facility] on [address]. He provides that he does not have a FWW and would need one. He is agreeable to getting one from [facility]. The patient states that his step-child can transport him home. SW attempted to call [facility] on [address] to set up the outpatient PT/OT appointments. SW left them a voicemail. SW contacted and faxed the FWW order to [facility]. SW updated the patient's RN. The patient is to discharge back home today, 08/14, with outpatient PT/OT.
--- NOTE | 2022-08-14 16:04 | NUR ---
Krupa, at [facility], reports that they are in-network with the patient's insurance and are able to accept him. She states that the patient has not met his deductible yet and depending on when the patient's hospital stay is billed. A visit from home health could cost around $200, until the deductible is met. DENISE contacted the patient to update. The patient would prefer to pursue with outpatient PT/OT. DENISE informed him how we are awaiting a call back to set up the appointments and that this SW will contact him back with the appointment times. The patient verbalized understanding and is agreeable to this. He provided SW with his phone number [phone].
[2022-08-14 16:11] VITALS: BP 130/64; BP 150/94; PULSE 107; PULSE 85; TEMP 97.9; TEMP 98.7
--- NOTE | 2022-08-14 17:05 | NUR ---
Discharge instructions reviewed with pt- he verbalizes understanding. Rowena with [facility] removed PICC line and patient layed flat for 30 minutes- dressing remains CDI. Pt escorted to private vehicle via w/c and discharged home with family.
--- NOTE | 2022-08-16 09:34 | NUR ---
DENISE contacted [facility] again to schedule the patient outpatient PT/OT appointments. The patient was secured a PT appointment on 08/20 at 0100 and an OT appointment on 08/28 at 1600. DENISE faxed the patient's orders to [facility]. DENISE contacted the patient and provided him with the above appointments and the contact information to [facility]. The patient verbalized understanding and had no questions or concerns for DENISE. No additional needs at this time.
== END 2022-08-14 17:05 | disposition home health service (06) | DRG 870 ==
LOC: COL.ER 14:24 → ICU 15:22 → MEDICAL 08-11 15:35
PROVIDERS: Family Medicine; Internal Medicine; Internal Medicine Pulmonary Disease; Physician Assistant; Student in an Organized Health Care Education/Training Program; ADMIT Internal Medicine
PROC: 5A1955Z Respiratory Ventilation, Greater than 96 Consecutive Hours (ICD-10-PCS; principal; 2022-08-05)
PROC: 0BH17EZ Insertion of Endotracheal Airway into Trachea, Via Natural or Artificial Opening (ICD-10-PCS; 2022-08-05)
PROC: 02HV33Z Insertion of Infusion Device into Superior Vena Cava, Percutaneous Approach (ICD-10-PCS; 2022-08-05)
PROC: 02HV33Z Insertion of Infusion Device into Superior Vena Cava, Percutaneous Approach (ICD-10-PCS; 2022-08-07)
PROC: 5A09457 Assistance with Respiratory Ventilation, 24-96 Consecutive Hours, Continuous Positive Airway Pressure (ICD-10-PCS; 2022-08-10)
DX: A41.9 Sepsis, unspecified organism (principal); J18.9 Pneumonia, unspecified organism; J96.01 Acute respiratory failure with hypoxia; J44.1 Chronic obstructive pulmonary disease with (acute) exacerbation; G72.81 Critical illness myopathy; J96.12 Chronic respiratory failure with hypercapnia; F17.210 Nicotine dependence, cigarettes, uncomplicated; I10 Essential (primary) hypertension; R73.9 Hyperglycemia, unspecified; Z20.822 Contact with and (suspected) exposure to COVID-19
CPT/HCPCS: C1751; J0330; J0696; J1644; J1815; J1940; J2060; J2251; J2405; J2704; J2920; J2930; J3010; J7050; J7120; J7512; Q9967

== ENCOUNTER → 2022-09-05 | Outpatient (CLI) | payer OTHER ==
[~2022-09-05] MED LIST changes: +PREDNISONE20 MG PO; +PROAIR HFA0.09 MG/AC IH; +RT ADVAIR 228 DISKUS IH; +RT SPIRIVA18 MCG IH; +WIXELA 250-501 EACH IH
== END ==
LOC: COL.VAS 13:54
DX: R79.89 Other specified abnormal findings of blood chemistry (principal)

== ENCOUNTER 2022-09-11 14:30 | Outpatient (RCR) | payer OTHER | END 2022-09-15 | disposition home or self-care (01) | LOC: MKS.ESL.PT | DX: A41.9 Sepsis, unspecified organism (principal); J18.9 Pneumonia, unspecified organism; J96.01 Acute respiratory failure with hypoxia; R53.1 Weakness ==